=== PATIENT | female | born 1935 | race Caucasian/White ===

== ENCOUNTER 2021-11-07 15:20 | Inpatient (IN) | payer OTHER ==
[2021-11-07 16:49] VITALS: BMI 20.7
[2021-11-07] MEDS ORDERED: DEXAMETHASONE SOD PHOSPHATE 10 MG/1 ML VIAL IVPUSH ONE (17:31)
[2021-11-07] MEDS ORDERED: SODIUM CHLORIDE 0.9% 500 ML INFUS.BAG IV ONE (17:44)
[2021-11-07 18:14] LABS: BASO % 0.4 % (0-2.0); EOS % 2.6 % (0-4.5); HEMATOCRIT 39.6 % (32.4-45.2); HEMOGLOBIN 13.2 GM/dL (10.7-15.3); LYMPH % 25.9 % (8-40); MCH 32.6 pg (25.7-33.7); MCHC 33.4 g/dl (32.0-36.0); MEAN CELL VOLUME 97.8 fl (80-96); MEAN PLT VOLUME 10.6 fl (7.5-11.1); MONO % 12.1 % (3.8-10.2); PLATELET COUNT 129 10^3/uL (134-434); RBC 4.05 M/mm3 (3.60-5.2); RDW 14.7 % (11.6-15.6); WHITE BLOOD COUNT 3.4 K/mm3 (4.0-10.0)
[2021-11-07] MEDS ORDERED: DEXAMETHASONE SOD PHOSPHATE 10 MG/1 ML VIAL ONE (18:15)
[2021-11-07 18:30] LABS: CHLORIDE 107 mmol/L (98-107); SODIUM 142 mmol/L (136-145)
[2021-11-07 18:34] LABS: ALBUMIN 3.1 g/dl (3.4-5.0); ANION GAP 5 MMOL/L (8-16); BLOOD UREA NITROGEN 32.1 mg/dL (7-18); CALCIUM 8.5 mg/dL (8.5-10.1); CO2 30 mmol/L (21-32); GLUCOSE,RANDOM 126 mg/dL (74-106)
[2021-11-07 18:37] LABS: CREATININE 1.1 mg/dL (0.55-1.3); SGOT/AST 16 U/L (15-37); SGPT/ALT 12 U/L (13-61)
[2021-11-07 18:39] LABS: BILIRUBIN,TOTAL 0.3 mg/dL (0.2-1); TOT PROT 5.9 g/dl (6.4-8.2)
[2021-11-07 18:40] LABS: ALK PHOS 64 U/L (45-117)
[2021-11-07] MEDS ORDERED: REMDESIVIR 200 MG in SODIUM CHLORIDE 250 ML IVPB ONE (22:00)
[2021-11-08 08:17] LABS: HEMATOCRIT 40.5 % (32.4-45.2); HEMOGLOBIN 13.3 GM/dL (10.7-15.3); MCH 32.4 pg (25.7-33.7); MCHC 32.8 g/dl (32.0-36.0); MEAN CELL VOLUME 98.9 fl (80-96); MEAN PLT VOLUME 10.7 fl (7.5-11.1); PLATELET COUNT 125 10^3/uL (134-434); RDW 14.6 % (11.6-15.6); WHITE BLOOD COUNT 3.1 K/mm3 (4.0-10.0)
[2021-11-08 08:32] LABS: CALCIUM 8.5 mg/dL (8.5-10.1)
[2021-11-08 08:33] LABS: ALBUMIN 2.8 g/dl (3.4-5.0); BLOOD UREA NITROGEN 36.8 mg/dL (7-18); MAGNESIUM 1.8 mg/dL (1.8-2.4)
[2021-11-08 08:36] LABS: CREATININE 0.9 mg/dL (0.55-1.3); PHOSPHOROUS 3.8 mg/dL (2.5-4.9); TOT PROT 5.4 g/dl (6.4-8.2)
[2021-11-08 08:37] LABS: BILIRUBIN,TOTAL 0.2 mg/dL (0.2-1)
[2021-11-08] MEDS: ASCORBIC ACID 500 MG TABLET (FP) PO SCH (09:45)
[2021-11-08] MEDS: DOCUSATE SODIUM 100 MG CAPSULE (FP) PO SCH (09:45)
[2021-11-08] MEDS: CHOLECALCIFEROL (VIT D3) 1,000 UNIT (25 MCG) TABLET PO SCH (09:45)
[2021-11-08] MEDS: LISINOPRIL 20 MG TABLET PO SCH (09:46)
[2021-11-08] MEDS: CYANOCOBALAMIN 1,000 MCG TABLET (FP) PO SCH (09:46)
[2021-11-08] MEDS: DEXAMETHASONE SOD PHOSPHATE 4 MG/1 ML VIAL IVPUSH SCH (09:46)
[2021-11-08] MEDS ORDERED: ENOXAPARIN NA (PORCINE) 40 MG/0.4 ML DISP.SYRIN SQ SCH (10:00)
[2021-11-08] MEDS ORDERED: PATIENT'S OWN MEDICATION (NON-FORMULARY) (Bupropion Hcl [Bupropion Hcl Sr] 150 MG Tab.Sr.1 PO SCH (10:00)
[2021-11-08] MEDS ORDERED: buPROPion HCL 75 MG TABLET PO SCH (11:00)
[2021-11-08] MEDS: ARIPiprazole 2 MG TABLET PO SCH (12:14)
[2021-11-08 13:41] LABS: PH,URINE 5.5 (5.0-8.0); URINE APPEARANCE CLEAR; URINE BILIRUBIN NEGATIVE (NEGATIVE); URINE COLOR YELLOW; URINE GLUCOSE (UA) NEGATIVE (NEGATIVE); URINE KETONE NEGATIVE (NEGATIVE); URINE LEUK ESTERASE NEGATIVE (NEGATIVE); URINE NITRITE NEGATIVE (NEGATIVE); URINE PROTEIN NEGATIVE (NEGATIVE)
[2021-11-08] MEDS: buPROPion HCL 75 MG TABLET PO SCH (13:48)
[2021-11-08] MEDS: ENOXAPARIN NA (PORCINE) 40 MG/0.4 ML DISP.SYRIN SQ SCH (22:36)
[2021-11-08] MEDS: REMDESIVIR 100 MG in SODIUM CHLORIDE 250 ML IVPB SCH (22:37)
[2021-11-09 08:14] LABS: BASO % 0.3 % (0-2.0); HEMATOCRIT 40.8 % (32.4-45.2); HEMOGLOBIN 13.1 GM/dL (10.7-15.3); LYMPH % 22.3 % (8-40); MCH 31.7 pg (25.7-33.7); MCHC 32.1 g/dl (32.0-36.0); MEAN CELL VOLUME 98.8 fl (80-96); MEAN PLT VOLUME 11.5 fl (7.5-11.1); MONO % 4.7 % (3.8-10.2); NEUT % 72.7 % (42.8-82.8); PLATELET COUNT 132 10^3/uL (134-434); RBC 4.13 M/mm3 (3.60-5.2); RDW 14.2 % (11.6-15.6); WHITE BLOOD COUNT 3.5 K/mm3 (4.0-10.0)
[2021-11-09 08:35] LABS: CALCIUM 8.8 mg/dL (8.5-10.1)
[2021-11-09 08:36] LABS: BLOOD UREA NITROGEN 34.5 mg/dL (7-18)
[2021-11-09 08:39] LABS: CREATININE 0.9 mg/dL (0.55-1.3); PHOSPHOROUS 3.7 mg/dL (2.5-4.9)
[2021-11-09] MEDS: CHOLECALCIFEROL (VIT D3) 1,000 UNIT (25 MCG) TABLET PO SCH (09:58)
[2021-11-09] MEDS: DOCUSATE SODIUM 100 MG CAPSULE (FP) PO SCH (09:58)
[2021-11-09] MEDS: CYANOCOBALAMIN 1,000 MCG TABLET (FP) PO SCH (09:58)
[2021-11-09] MEDS: ENOXAPARIN NA (PORCINE) 40 MG/0.4 ML DISP.SYRIN SQ SCH ×2 (09:58→22:04)
[2021-11-09] MEDS: ASCORBIC ACID 500 MG TABLET (FP) PO SCH (09:58)
[2021-11-09] MEDS: DEXAMETHASONE SOD PHOSPHATE 4 MG/1 ML VIAL IVPUSH SCH (09:58)
[2021-11-09] MEDS: ARIPiprazole 2 MG TABLET PO SCH (09:59)
[2021-11-09] MEDS: LISINOPRIL 20 MG TABLET PO SCH (09:59)
[2021-11-09] MEDS: buPROPion HCL 75 MG TABLET PO SCH (12:53)
[2021-11-09] MEDS: REMDESIVIR 100 MG in SODIUM CHLORIDE 250 ML IVPB SCH (22:04)
[2021-11-10 07:51] LABS: BASO % 0.3 % (0-2.0); EOS % 0.8 % (0-4.5); HEMATOCRIT 39.9 % (32.4-45.2); HEMOGLOBIN 12.7 GM/dL (10.7-15.3); LYMPH % 36.1 % (8-40); MCH 31.2 pg (25.7-33.7); MCHC 31.8 g/dl (32.0-36.0); MEAN CELL VOLUME 98.3 fl (80-96); MEAN PLT VOLUME 11.8 fl (7.5-11.1); MONO % 7.9 % (3.8-10.2); NEUT % 54.9 % (42.8-82.8); PLATELET COUNT 130 10^3/uL (134-434); RBC 4.06 M/mm3 (3.60-5.2); RDW 13.8 % (11.6-15.6); WHITE BLOOD COUNT 3.7 K/mm3 (4.0-10.0)
[2021-11-10 08:15] LABS: BLOOD UREA NITROGEN 30.4 mg/dL (7-18); MAGNESIUM 1.8 mg/dL (1.8-2.4)
[2021-11-10 08:18] LABS: CREATININE 0.8 mg/dL (0.55-1.3); PHOSPHOROUS 3.3 mg/dL (2.5-4.9)
[2021-11-10] MEDS: ARIPiprazole 2 MG TABLET PO SCH (11:06)
[2021-11-10] MEDS: buPROPion HCL 75 MG TABLET PO SCH (11:06)
[2021-11-10] MEDS: DOCUSATE SODIUM 100 MG CAPSULE (FP) PO SCH (11:06)
[2021-11-10] MEDS: ASCORBIC ACID 500 MG TABLET (FP) PO SCH (11:07)
[2021-11-10] MEDS: CHOLECALCIFEROL (VIT D3) 1,000 UNIT (25 MCG) TABLET PO SCH (11:07)
[2021-11-10] MEDS: ENOXAPARIN NA (PORCINE) 40 MG/0.4 ML DISP.SYRIN SQ SCH ×2 (11:07→21:32)
[2021-11-10] MEDS: LISINOPRIL 20 MG TABLET PO SCH (11:07)
[2021-11-10] MEDS: CYANOCOBALAMIN 1,000 MCG TABLET (FP) PO SCH (11:07)
[2021-11-10] MEDS: DEXAMETHASONE SOD PHOSPHATE 4 MG/1 ML VIAL IVPUSH SCH (11:33)
[2021-11-10] MEDS ORDERED: DEXTROSE 50%-WATER - 25 GM/50 ML VIAL IVPUSH PRN (17:23)
[2021-11-10] MEDS: REMDESIVIR 100 MG in SODIUM CHLORIDE 250 ML IVPB SCH (21:32)
[2021-11-11] MEDS: DOCUSATE SODIUM 100 MG CAPSULE (FP) PO SCH (09:03)
[2021-11-11] MEDS: CHOLECALCIFEROL (VIT D3) 1,000 UNIT (25 MCG) TABLET PO SCH (09:03)
[2021-11-11] MEDS: LISINOPRIL 20 MG TABLET PO SCH (09:03)
[2021-11-11] MEDS: ARIPiprazole 2 MG TABLET PO SCH (09:04)
[2021-11-11] MEDS: ENOXAPARIN NA (PORCINE) 40 MG/0.4 ML DISP.SYRIN SQ SCH (09:04)
[2021-11-11] MEDS: CYANOCOBALAMIN 1,000 MCG TABLET (FP) PO SCH (09:04)
[2021-11-11] MEDS: ASCORBIC ACID 500 MG TABLET (FP) PO SCH (09:04)
[2021-11-11] MEDS: DEXAMETHASONE SOD PHOSPHATE 4 MG/1 ML VIAL IVPUSH SCH (09:04)
[2021-11-11 09:11] LABS: BASO % 0.5 % (0-2.0); EOS % 0.7 % (0-4.5); HEMATOCRIT 42.5 % (32.4-45.2); HEMOGLOBIN 13.4 GM/dL (10.7-15.3); MCH 31.2 pg (25.7-33.7); MCHC 31.5 g/dl (32.0-36.0); MEAN CELL VOLUME 99.1 fl (80-96); MEAN PLT VOLUME 11.8 fl (7.5-11.1); MONO % 9.7 % (3.8-10.2); NEUT % 54.1 % (42.8-82.8); PLATELET COUNT 123 10^3/uL (134-434); RBC 4.29 M/mm3 (3.60-5.2); RDW 14.4 % (11.6-15.6); WHITE BLOOD COUNT 3.8 K/mm3 (4.0-10.0)
[2021-11-11 09:43] LABS: CALCIUM 8.8 mg/dL (8.5-10.1)
[2021-11-11 09:44] LABS: BLOOD UREA NITROGEN 33.5 mg/dL (7-18); MAGNESIUM 1.9 mg/dL (1.8-2.4)
[2021-11-11 09:47] LABS: CREATININE 0.9 mg/dL (0.55-1.3)
[2021-11-11 09:49] LABS: PHOSPHOROUS 3.6 mg/dL (2.5-4.9)
[2021-11-11] MEDS: buPROPion HCL 75 MG TABLET PO SCH (10:24)
[2021-11-11] MEDS ORDERED: REMDESIVIR 100 MG in SODIUM CHLORIDE 250 ML IVPB ONE (16:00)
[2021-11-11 18:15] VITALS: BP 143/84; PULSE 67; TEMP 98.7
== END 2021-11-11 20:00 | DRG 177 ==
LOC: JER 15:20 → JERBED 17:02 → J4S 11-08 02:11
PROVIDERS: ADMIT Internal Medicine; ATTEND Internal Medicine
PROC: XW033E5 Introduction of Remdesivir Anti-infective into Peripheral Vein, Percutaneous Approach, New Technology Group 5 (ICD-10-PCS; principal; 2021-11-07)
DX: U07.1 COVID-19 (principal); J12.82 Pneumonia due to coronavirus disease 2019; J98.11 Atelectasis; D69.6 Thrombocytopenia, unspecified; I10 Essential (primary) hypertension; F32.A Depression, unspecified; M62.81 Muscle weakness (generalized); R91.1 Solitary pulmonary nodule; D72.819 Decreased white blood cell count, unspecified; R63.0 Anorexia
CPT/HCPCS: 36415; 71045-TC-FY; 71250-TC; 80048; 80053; 81003; 82550; 82728; 82962; 83735; 84100; 84443; 84484; 85025; 85027; 85379; 86140; 93005; 93010; 94761; 99285-25; C9399; C9803; J1100; U0003; U0005